=== PATIENT | female | born 1930 | race Caucasian/White ===

== ENCOUNTER 2017-01-04 11:22 | Observation (INO) | payer MEDICARE ==
[~2017-01-04] VITALS: Ht 170.2 cm; Wt 58.7 kg
[~2017-01-04 11:22] MED LIST: CALC600T34; FISH1000; RISE30; TAB-TAB
[2017-01-04 11:28] VITALS: BP 82/59; PULSE 63; RESP 16; TEMP 98; O2SAT 97
[2017-01-04] MEDS ORDERED: SODIUM CHLOR 0.9% 1000 ML INJ 1,000 ML IV ONE (11:41)
[2017-01-04 11:46] VITALS: BP_SYST 139; BP_SYST 162; BP_DIAS 57; BP_DIAS 79; RESP 16; RESP 17; O2SAT 97
--- NOTE | 2017-01-04 11:51 | PD ---
HPI Chief Complaint: Syncope/Near-Syncope Time Seen by Provider: 11:45 Travel History International Travel<30 days: No Contact w/Intl Traveler<30days: No Traveled to known affect area: No History of Present Illness HPI 86-year-old female that presents to the ED for evaluation of syncope. Patient reports that she has a chronic history of vertigo which she gets on occasion. Per patient she's never actually passed out or lost consciousness but this is the first time she has. Per patient this morning she woke up with some dizziness which she describes more as a presyncope Symptoms Than Actual Vertigo. Per Patient She Was Not Spinning but She [place] like She Was Lightheaded. Per Patient She Took a Meclizine to Help with this and she got up and before she knew it she was on the floor. She states that before she lost consciousness she felt lightheaded. She denies feeling sensation of her moving or someone else moving. She denies taking any medications including blood thinners. The only medication she usually takes is meclizine for her vertigo. Per patient or her pain is on the left hand around the thumb as well as on the face. Patient did have significant bleeding per family from the nostril which has now stopped. Per patient and her pain right now is 6 out of 10. States mainly on the nose and the left nostril. Denies any hip pain. No back pain. No neck pain. No chest pain or shortness of breath. She denies any symptoms of chest pain or palpitations when she had the syncopal episode. Nobody witnessed the fall but per daughter she was out for possibly a minute. No allergies to medication. Denies any recent travel. Again she has never had a syncopal episode before. PFSH Past Medical History Hx Anticoagulant Therapy: No Cardiovascular Problems: Yes (CHOL) Diabetes: No ?: Not Social History Alcohol Use: No Tobacco Use: No Substance Use: No Allergies-Medications (Allergen,Severity, Reaction): Coded Allergies: No Known Allergies (Verified , 01/04/17) Reported Meds & Prescriptions Reported Meds & Active Scripts Active No Active Prescriptions or Reported Medications Review of Systems General / Constitutional: No: Fever, Chills, Weight Gain, Weight Loss, Other Eyes: No: Diploplia, Blurred Vision, Photophobia, Drainage, Redness, Foreign Body Sensation, Pain, Tearing, Blind Spots, Visual changes, Blindness, Other HENT: Positive: Vertigo, Lightheadedness, No: Headaches, Sore Throat, Rhinitis , Rhinorrhea, Congestion, Nosebleed, Neck Stiffness, Neck Pain, Masses, Gingival Bleeding, Dental Difficulties, Ear Discharge, Earache, Other Cardiovascular: No: Chest Pain or Discomfort, Palpitations, Irregular Rhythm, Tachycardia, Diaphoresis, Syncope, Dyspnea on exertion, Varicosities, Edema, Cyanosis, Varicosities, Phlebitis, Claudication, Other Respiratory: No: Cough, Shortness of Breath, Wheezing, Sneezing, Orthopnea, Hemoptysis, Stridor, Night Sweats, Pleuritic Pain, Other Gastrointestinal: No: Nausea, Vomiting, Diarrhea, Abdominal Pain, Hematemesis, Hematochezia, Constipation, Changes in Bowel Habits, Indigestion, Dysphagia, Loss of Appetite, Other Genitourinary: No: Urgency, Frequency, Dysuria, Nocturia, Hematuria, Decreased Urinary Output, Oliguria, Hesitancy, Dribbling, Incontinence, Pelvic Pain, Flank Pain, Dyspareunia, Discharge, Dysmenorrhea, Menorrhagia, Metorrhagia, Vaginal Bleeding, Other Musculoskeletal: Positive: Pain, No: Myalgias, Arthralgias, Limited ROM, Weakness, Cramping, Edema, Atrophy, Other Skin: No Rash, No Itching, No Dryness, No Lumps, No Hives, No Change in Pigmentation, No Change in nails, No Alopecia, No Lesions, No Breast Lumps, No Breast Tenderness, No Breast Swelling, No Other Neurologic: Positive: Dizziness, Syncope, No: Weakness, Focal Abnormalities, Coordination Problem, Tremor, Ataxia, Headache, Change in Mentation, Slurred Speech, Paresthesia, Incontinence, Seizures, Sensory Disturbance, Other Psychiatric: No: Anxiety, Depression, Suicidal Ideations, Disorder of Thought, Mood Disorder, Substance Abuse, Homicidal Ideation, Other Endocrine: No: Heat Intolerance, Cold Intolerance, Polyuria, Polydipsia, Other Hematologic/Lymphatic: No: Easy Bruising, Lymph Node Enlargement, Other Physical Exam Narrative GENERAL: SKIN: Warm and dry. HEAD: Atraumatic. Normocephalic. EYES: Pupils equal and round 4 mm reactive to light and accommodation. No scleral icterus. No injection or drainage. ENT: No nasal bleeding or discharge. Mucous membranes pink and moist. Tongue is midline. No uvula deviation. Patient has significant bruising and swelling noted on the bridge of the nose. Both nostrils are patent. No active bleeding at this time noted. NECK: Trachea midline. No JVD. CARDIOVASCULAR: Regular rate and rhythm. No murmurs, S3, S4. RESPIRATORY: No accessory muscle use. Clear to auscultation. Breath sounds equal bilaterally. GASTROINTESTINAL: Abdomen soft, non-tender, nondistended. Hepatic and splenic margins not palpable. MUSCULOSKELETAL: Extremities without clubbing, cyanosis, or edema. No obvious deformities. Full range of motion of the upper and lower extremities bilaterally. 2+ pulses bilaterally. No lumbar, thoracic, cervical spine tenderness to palpation. NEUROLOGICAL: Awake and alert. No obvious cranial nerve deficits. Motor grossly within normal limits. Five out of 5 muscle strength in the arms and legs. Normal speech. PSYCHIATRIC: Appropriate mood and affect; insight and judgment normal. Data Data Last Documented VS Vital Signs Date Time Temp Pulse Resp B/P Pulse Ox O2 Delivery O2 Flow Rate FiO2 01/04/17 11:46 97 Room Air 01/04/17 11:46 68 17 162/79 73 16 139/57 01/04/17 11:28 98.0 Orders Electrocardiogram (01/04/17 ) Electrocardiogram (01/04/17 11:41) Basic Metabolic Panel (Bmp) (01/04/17 11:41) Complete Blood Count With Diff (01/04/17 11:41) Magnesium (Mg) (01/04/17 11:41) Ckmb (Isoenzyme) Profile (01/04/17 11:41) Troponin I (01/04/17 11:41) Urinalysis - C+S If Indicated (01/04/17 11:41) Chest, Single Ap (01/04/17 11:41) Ct Brain W/O Iv Contrast(Rout) (01/04/17 11:41) Ecg Monitoring (01/04/17 11:41) Iv Access Insert/Monitor (01/04/17 11:41) Oximetry (01/04/17 11:41) Sodium Chlor 0.9% 1000 Ml Inj (Ns 1000 M (01/04/17 11:41) Ct Facial Bones W/O Iv Cont (01/04/17 ) Orthostatic Vital Signs (01/04/17 11:41) Hand, Complete ([id number]) (01/04/17 ) Thyroid Stimulating Hormone (01/04/17 11:41) Echo 2d Comp W/Dopp(Routine) (01/04/17 ) Admit Order (Ed Use Only) (01/04/17 13:13) Labs Laboratory Tests Test 01/04/17 12:25 White Blood Count 11.2 TH/MM3 Red Blood Count 4.39 MIL/MM3 Hemoglobin 12.7 GM/DL Hematocrit 37.3 % Mean Corpuscular Volume 85.2 FL Mean Corpuscular Hemoglobin 28.9 PG Mean Corpuscular Hemoglobin 34.0 % Concent Red Cell Distribution Width 12.6 % Platelet Count 212 TH/MM3 Mean Platelet Volume 7.3 FL Neutrophils (%) (Auto) 74.6 % Lymphocytes (%) (Auto) 17.6 % Monocytes (%) (Auto) 7.0 % Eosinophils (%) (Auto) 0.5 % Basophils (%) (Auto) 0.3 % Neutrophils # (Auto) 8.3 TH/MM3 Lymphocytes # (Auto) 2.0 TH/MM3 Monocytes # (Auto) 0.8 TH/MM3 Eosinophils # (Auto) 0.1 TH/MM3 Basophils # (Auto) 0.0 TH/MM3 CBC Comment DIFF FINAL Differential Comment Sodium Level 138 MEQ/L Potassium Level 4.0 MEQ/L Chloride Level 101 MEQ/L Carbon Dioxide Level 30.4 MEQ/L Anion Gap 7 MEQ/L Blood Urea Nitrogen 14 MG/DL Creatinine 0.67 MG/DL Estimat Glomerular Filtration 84 ML/MIN Rate Random Glucose 86 MG/DL Calcium Level 8.7 MG/DL Magnesium Level 2.2 MG/DL Total Creatine Kinase 97 U/L Troponin I LESS THAN 0.02 NG/ML Thyroid Stimulating Hormone 1.360 uIU/ML 3rd Gen [facility] Medical Decision Making Medical Screen Exam Complete: Yes Emergency Medical Condition: Yes Medical Record Reviewed: Yes Interpretation(s) EKG shows sinus bradycardia but no sign of acute ischemia or arrhythmia with me and attending. Last Impressions Head CT 01/04/17 1141 Signed Impressions: Service Date/Time: Wednesday, January 04, 2017 11:51 - CONCLUSION: 3 mm punctate focus of spontaneously increased density in the right frontal lobe, could be a small calcification versus a small acute petechial hemorrhage. I don't have any pertinent priors. Followup noncontrast head CT recommended. Florin Hu MD Maxillofacial CT 01/04/17 0000 Signed Impressions: Service Date/Time: Wednesday, January 04, 2017 11:51 - CONCLUSION: Comminuted , minimally displaced fracture of the nose. Florin Hu MD CBC & BMP Diagram 01/04/17 12:25 troponin, CKMB and TSh WNL Differential Diagnosis Syncope versus presyncope versus fall versus head injury versus fracture Narrative Course 86-year-old female that presents to the ED for evaluation of syncopal episode. Patient was properly examined and was found to have signs and symptoms consistent with appears to be syncopal episode. Unclear etiology but does appear to be somewhat related to her blood pressure as her blood pressure today was found to be low with standing. Possible prostatic hypertension. Unclear etiology at this time. She does have a history of vertigo and tells me that she 's had vertigo in the past but never had syncopal episode. From the way she describes her symptoms that he did not sounds like vertigo to me sounds more like a syncopal episode. Because of her age and risk factors and the recommended workup. Patient is agreeable with this. Case will be consulted with my attending Dr. Melchor who evaluated the patient and agrees with plan and treatment plan. The patient's labs and imaging were essentially unremarkable other than for CT showing possible bleed versus calcification. I spoke with neurosurgery Dr. Larkin recommends that this is likely not a bleed more like calcification he doesn't recommend any intervention at this time. Patient still found to have orthostatic hypotension with a drop of 20 points. My attending agrees to admission for syncope and orthostatic hypotension. Patient does have nasal fractures but no sign of hand fractures. NENITA was paged and Dr Rivera agrees to admission. Procedures EKG Prior to Arrival: No Physician Communication Physician Communication Spoke with Dr Larkin about findings on CT of head and he believes is more of a calcification than an actual bleed. Does not recommend anything at this time. Diagnosis Primary Impression: Syncope Qualified Code: R55 - Syncope, unspecified syncope type Additional Impressions: Nasal bone fracture Qualified Code: S02.2XXA - Closed fracture of nasal bone, initial encounter Head injury, acute Qualified Code: S09.90XA - Head injury, acute, initial encounter Orthostatic hypotension Admitting Information Admitting Physician Requests: Observation Scripts No Active Prescriptions or Reported Meds Daniel Ambrocio Jan 04, 2017 11:51
--- NOTE | 2017-01-04 12:16 | RADHPO ---
EXAM DATE/TIME: 01/04/2017 11:51 [facility] COMPARISON: No previous studies available for comparison. INDICATIONS : Dizziness and fall today onto face. RADIATION DOSE: 65.56 CTDIvol (mGy) MEDICAL HISTORY : None SURGICAL HISTORY : None. ENCOUNTER: Initial ACUITY: 1 day PAIN SCALE: 5/10 LOCATION: Bilateral head TECHNIQUE: Multiple contiguous axial images were obtained of the head. Using automated exposure control and adj ustment of the mA and/or kV according to patient size, radiation dose was kept as low as reasonably a chievable to obtain optimal diagnostic quality images. FINDINGS: 3 mm punctate focus of increased attenuation seen in the right frontal lobe, series 2 image 11. This could be a small petechial hemorrhage. No other evidence of intracranial bleed. No mass, mass effect or midline shift. No evidence of an acute ischemic event. CONCLUSION: 3 mm punctate focus of spontaneously increased density in the right frontal lobe, could be a small ca lcification versus a small acute petechial hemorrhage. I don't have any pertinent priors. Followup no ncontrast head CT recommended. Florin Hu MD on January 04, 2017 at 12:12 Board Certified Radiologist. This report was verified electronically.
--- NOTE | 2017-01-04 12:20 | RADHPO ---
EXAM DATE/TIME: 01/04/2017 11:51 [facility] COMPARISON: No previous studies available for comparison. INDICATIONS : Dizziness and fall today onto face. RADIATION DOSE: 34.90 CTDIvol (mGy) MEDICAL HISTORY : None SURGICAL HISTORY : None. ENCOUNTER: Initial ACUITY: 1 day PAIN SCORE: 8/10 LOCATION: face/nose TECHNIQUE: Volumetric scanning of the facial bones was performed. Using automated exposure control and adjustme nt of the mA and/or kV according to patient size, radiation dose was kept as low as reasonably achiev able to obtain optimal diagnostic quality images. FINDINGS: ORBITS: The orbital and infraorbital osseous structures are intact. The retroconal structures have a normal configuration. No radiopaque foreign bodies are seen. NASAL BONE: Comminuted, minimally displaced fracture seen of the tip of the nasion and both sides of the nasal ar ch. ZYGOMATIC ARCHES: Symmetric without evidence of fracture. SINUSES: The maxillary, ethmoid and frontal sinuses are intact. No air-fluid levels seen. NASAL CAVITY: No significant blood seen. There is a leftward convex bowing of the nasal septum. The septum is intac t. SOFT TISSUES: No radiopaque foreign bodies seen. No soft-tissue swelling is seen. INTRACRANIAL: No intracranial air seen. CRIBIFORM PLATE: Grossly intact. 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 No subluxation. CONCLUSION: Comminuted, minimally displaced fracture of the nose. Florin Hu MD on January 04, 2017 at 12:17 Board Certified Radiologist. This report was verified electronically.
[2017-01-04 12:35] LABS: AUTOMATED NEUTROPHIL # 8.3 TH/MM3 (1.8-7.7); BASOPHIL % 0.3 % (0.0-2.0); EOSINOPHIL # 0.1 TH/MM3 (0-0.4); EOSINOPHIL % 0.5 % (0.0-4.0); HEMATOCRIT 37.3 % (35.0-46.0); HEMO FLAGS DIFF FINAL; LYMPH % 17.6 % (9.0-44.0); MEAN CELL VOLUME 85.2 FL (80.0-100.0); MEAN CORPUSCULAR HEMOGLOBIN 28.9 PG (27.0-34.0); NEUT % 74.6 % (16.0-70.0); PLATELET COUNT 212 TH/MM3 (150-450); RED BLOOD COUNT 4.39 MIL/MM3 (4.00-5.30); RED CELL DISTRIBUTION WIDTH 12.6 % (11.6-17.2); WHITE BLOOD COUNT 11.2 TH/MM3 (4.0-11.0)
--- NOTE | 2017-01-04 12:39 | RADHPO ---
EXAM DATE/TIME: 01/04/2017 12:01 [facility] COMPARISON: No previous studies available for comparison. INDICATIONS : Fell, syncope MEDICAL HISTORY : None. SURGICAL HISTORY : None. ENCOUNTER: Initial ACUITY: 1 day PAIN SCORE: 0/10 LOCATION: Bilateral chest FINDINGS: No infiltrate, effusion or pneumothorax. There is mild biapical pleural thickening/scarring. Normal h eart size. 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 CONCLUSION: No evidence of acute cardiopulmonary disease. Florin Hu MD on January 04, 2017 at 12:37 Board Certified Radiologist. This report was verified electronically.
--- NOTE | 2017-01-04 12:40 | RADHPO ---
EXAM DATE/TIME: 01/04/2017 12:04 [facility] COMPARISON: No previous studies available for comparison. INDICATIONS : fell, left hand pain MEDICAL HISTORY : None. SURGICAL HISTORY : None. ENCOUNTER: Initial ACUITY: 1 day PAIN SCORE: 10/10 LOCATION: Left hand FINDINGS: No fracture or subluxation seen of the left hand. Radiographic appearance of the soft tissues within normal limits. There is multifocal osteoarthritis, most severe of the first carpometacarpal joint and pointer and lo ng finger distal interphalangeal joints. Findings are mild to moderate elsewhere. CONCLUSION: Multifocal osteoarthritis. No fracture or subluxation seen of the left hand. Florin Hu MD on January 04, 2017 at 12:38 Board Certified Radiologist. This report was verified electronically.
[2017-01-04 12:43] LABS: CHLORIDE 101 MEQ/L (98-107); SODIUM (NA) 138 MEQ/L (136-145)
[2017-01-04 12:48] LABS: ANION GAP 7 MEQ/L (5-15); BICARBONATE 30.4 MEQ/L (21.0-32.0); BLOOD UREA NITROGEN 14 MG/DL (7-18); MAGNESIUM 2.2 MG/DL (1.5-2.5)
[2017-01-04 12:52] LABS: GLOMERULAR FILTRATION RATE 84 ML/MIN (>89)
[2017-01-04 13:04] LABS: CREATINE KINASE 97 U/L (26-192)
--- NOTE | 2017-01-04 13:13 | PD ---
Data Data Last Documented VS Vital Signs Date Time Temp Pulse Resp B/P Pulse Ox O2 Delivery O2 Flow Rate FiO2 01/04/17 11:46 97 Room Air 01/04/17 11:46 68 17 162/79 73 16 139/57 01/04/17 11:28 98.0 Orders Electrocardiogram (01/04/17 ) Electrocardiogram (01/04/17 11:41) Basic Metabolic Panel (Bmp) (01/04/17 11:41) Complete Blood Count With Diff (01/04/17 11:41) Magnesium (Mg) (01/04/17 11:41) Ckmb (Isoenzyme) Profile (01/04/17 11:41) Troponin I (01/04/17 11:41) Urinalysis - C+S If Indicated (01/04/17 11:41) Chest, Single Ap (01/04/17 11:41) Ct Brain W/O Iv Contrast(Rout) (01/04/17 11:41) Ecg Monitoring (01/04/17 11:41) Iv Access Insert/Monitor (01/04/17 11:41) Oximetry (01/04/17 11:41) Sodium Chlor 0.9% 1000 Ml Inj (Ns 1000 M (01/04/17 11:41) Ct Facial Bones W/O Iv Cont (01/04/17 ) Orthostatic Vital Signs (01/04/17 11:41) Hand, Complete ([id number]) (01/04/17 ) Thyroid Stimulating Hormone (01/04/17 11:41) Labs Laboratory Tests Test 01/04/17 12:25 White Blood Count 11.2 TH/MM3 Red Blood Count 4.39 MIL/MM3 Hemoglobin 12.7 GM/DL Hematocrit 37.3 % Mean Corpuscular Volume 85.2 FL Mean Corpuscular Hemoglobin 28.9 PG Mean Corpuscular Hemoglobin 34.0 % Concent Red Cell Distribution Width 12.6 % Platelet Count 212 TH/MM3 Mean Platelet Volume 7.3 FL Neutrophils (%) (Auto) 74.6 % Lymphocytes (%) (Auto) 17.6 % Monocytes (%) (Auto) 7.0 % Eosinophils (%) (Auto) 0.5 % Basophils (%) (Auto) 0.3 % Neutrophils # (Auto) 8.3 TH/MM3 Lymphocytes # (Auto) 2.0 TH/MM3 Monocytes # (Auto) 0.8 TH/MM3 Eosinophils # (Auto) 0.1 TH/MM3 Basophils # (Auto) 0.0 TH/MM3 CBC Comment DIFF FINAL Differential Comment Sodium Level 138 MEQ/L Potassium Level 4.0 MEQ/L Chloride Level 101 MEQ/L Carbon Dioxide Level 30.4 MEQ/L Anion Gap 7 MEQ/L Blood Urea Nitrogen 14 MG/DL Creatinine 0.67 MG/DL Estimat Glomerular Filtration 84 ML/MIN Rate Random Glucose 86 MG/DL Calcium Level 8.7 MG/DL Magnesium Level 2.2 MG/DL Total Creatine Kinase 97 U/L Troponin I LESS THAN 0.02 NG/ML Thyroid Stimulating Hormone 1.360 uIU/ML 3rd Gen MDM Supervised Visit with SHAN: Yes Narrative Course I, Dr. Archibald, have reviewed the advance practice practioner's documentation and am in agreement, met with the patient face to face, made the diagnosis, and the medical decision making was done by me. *My assessment and Findings: 86-year-old female here after syncope. Patient noted lightheadedness, no dizziness. Stood up and extension she knew she was unconscious on the floor. Hit her head. Notes bruising around the nose. Epistaxis that has since resolved. No nasal hematoma on exam. History of peripheral vertigo, takes meclizine for same, but this did not feel like her typical vertigo spell. No chest pain, shortness breath or palpitations. Initially hypotensive, normalized upon recheck. Nonfocal neuro exam. Head is atraumatic but she has ecchymosis around the nasal bridge. Again no septal hematoma. Regular rate and rhythm, clear to auscultation bilaterally. Differential includes orthostatic syncope, vasovagal syncope, arrhythmia, ACS, closed head injury, skull fracture, ICH, nasal bone fracture. CT of the brain shows questionable punctate hemorrhage versus calcification. Neurosurgery, Dr. Larkin, reviewed this and felt this to be consistent with calcification and was okay with patient being admitted here at our [facility]. The remainder of her workup was negative. Urinalysis remains pending at time of dictation. Patient will be admitted for further workup of her syncope. Diagnosis Primary Impression: Syncope Qualified Code: R55 - Syncope, unspecified syncope type Additional Impressions: Nasal bone fracture Qualified Code: S02.2XXA - Closed fracture of nasal bone, initial encounter Head injury, acute Qualified Code: S09.90XA - Head injury, acute, initial encounter Orthostatic hypotension Scripts No Active Prescriptions or Reported Meds Dary Archibald MD Jan 04, 2017 13:13
[2017-01-04 13:26] LABS: BLOOD, URINE NEG (NEG); GLUCOSE,URINE NEG (NEG); KETONE, URINE NEG (NEG); NITRITE,URINE NEG (NEG); PH, URINE 6.5 (5.0-8.5)
[2017-01-04 13:27] LABS: METHOD OF COLLECTION CLEAN CATCH; URINE COLOR YELLOW (YELLW/STRAW)
[2017-01-04 13:30] LABS: COMMENT (UR) CULT NOT INDICATED; CULTURE IF INDICATED CULT NOT INDICATED; WBC, URINE 0-2 /hpf (0-5)
[2017-01-04] MEDS ORDERED: NALOXONE HCL 0.4 MG/ML AMP IV PRN (13:30)
[2017-01-04] MEDS ORDERED: SODIUM CHLORIDE 0.9% FLUSH 5 ML FLUSH FLUSH PRN (13:30)
[2017-01-04] MEDS ORDERED: ONDANSETRON HCL 4 MG/2 ML VIAL IVP PRN (13:30)
[2017-01-04] MEDS ORDERED: ACETAMINOPHEN 325 MG TAB PO PRN (13:30)
[2017-01-04 13:50] VITALS: BP 140/64
[2017-01-04] MEDS: SODIUM CHLOR 0.9% 1000 ML INJ 1,000 ML IV SCH (13:54)
[2017-01-04 15:19] VITALS: BP_SYST 138; BP_SYST 140; BP_DIAS 68; BP_DIAS 71; PULSE 71; RESP 19; TEMP 97.6; O2SAT 96
--- NOTE | 2017-01-04 15:28 | HHI.HP ---
[facility] Service [facility] Primary Care Physician Trudy Henry MD Admission Diagnosis sycnope, orthostatic hypotension, nasal fracture Diagnoses: (1) Syncope Diagnosis: Principal (2) Orthostatic hypotension Diagnosis: Principal (3) Head injury, acute Diagnosis: Principal (4) Nasal bone fracture Diagnosis: Principal Chief Complaint: Syncope Travel History International Travel<30 Days: No Contact w/Intl Traveler <30 Da: No Traveled to Known Affected Are: No History of Present Illness 86-year-old female with known history of vertigo who presented to hospital after syncopal episode. Patient states that she is in normal state of health until this morning when she got out of bed she realized that she was having dizziness. She states that she does have this intermittently in the last episode was 6 months ago. The patient got up and went to the kitchen and took a meclizine, she turned around to go back and that time she had a syncopal episode and woke up on the ground. The daughter was at bedside and it was explained that the patient does have episodes of this dizziness to where she is usually able to lower herself down to the ground, take her medication, crawl or stand back up in go to a safe place. However this time she did have a syncopal episode. The daughter brought her blood pressure cuff over and checked her blood pressure at that time and she stated that it was high. She did not give any exact numbers. Patient was brought to the hospital and found to have orthostatic hypotension, fractured nasal bone, close head injury with possible calcium deposition or petechial hemorrhage. Is recommended by ER physician that the patient be observed overnight for further recommendations. The patient denies any visual changes, difficulty in speaking, difficulty in eating , gait disturbance, paresthesia, unilateral weakness. Review of Systems Constitutional: COMPLAINS OF: Dizziness, DENIES: Diaphoretic episodes, Fatigue , Fever, Weight gain, Weight loss, Chills, Change in appetite, Night Sweats Eyes: DENIES: Blurred vision, Diplopia, Eye inflammation, Eye pain, Vision loss , Double Vision Ears, nose, mouth, throat: DENIES: Vertigo, Nasal discharge, Throat pain, Ear Pain, Running Nose, Sinus Pain Respiratory: DENIES: Apneas, Cough, Snoring, Wheezing, Hemoptysis, Sputum production, Shortness of breath Cardiovascular: COMPLAINS OF: Syncope, DENIES: Chest pain, Palpitations, Dyspnea on Exertion, PND, Lower Extremity Edema, Orthopnea, Claudication Gastrointestinal: DENIES: Abdominal pain, Black stools, Bloody stools, Constipation, Diarrhea, Nausea, Vomiting, Difficulty Swallowing, Anorexia Neurologic: DENIES: Abnormal gait, Headache, Localized weakness, Paresthesias, Speech Problems, Tremor, Poor Balance Past Family Social History Past Medical History Vertigo Past Surgical History Cataract surgery Hysterectomy Reported Medications Meclizine 25 mg as needed for dizziness Allergies: Coded Allergies: No Known Allergies (Verified , 01/04/17) Family History Reviewed is significant for father having black lung. Mother having congestive heart failure Social History Patient denies any tobacco, alcohol or illicit drugs Physical Exam Vital Signs Vital Signs Date Time Temp Pulse Resp B/P Pulse Ox O2 Delivery O2 Flow Rate FiO2 01/04/17 13:50 58 16 140/64 99 01/04/17 11:46 97 Room Air 01/04/17 11:46 68 17 162/79 73 16 139/57 01/04/17 11:43 68 Room Air 01/04/17 11:28 98.0 63 16 82/59 97 Physical Exam GENERAL: Well-developed, well-nourished, in no acute distress. alert and orientated HEENT: Head is normocephalic without any lesions or masses noted. Facial features are symmetric. Eyes: Pupils equal round reactive to light. Extraocular muscles are intact. Conjunctivae were clear. Oropharyngeal: Pharynx without any erythema edema. Tongue is midline without deviation. Buccal mucosa is moist without any masses or lesions NECK: Supple without any masses. Trachea midline no deviation. No JVD, no bruits are appreciated. Patient does have nasal bridge edema. There is ecchymosis noted over nasal bridge and bilateral infraorbital CARDIAC: Regular rhythm, regular rate. S1/S2 are heard. No murmurs gallops or rubs. LUNGS: Clear to auscultation bilaterally. No wheeze, rhonchi or rales. No use of accessory muscles on inspiration or expiration. ABDOMEN: Soft, nontender. Nondistended. Bowel sounds heard in all 4 quadrants. No organomegaly or masses. Negative rebound, negative guarding EXTREMITIES: No edema, pulses are equal bilaterally. No cyanosis or clubbing NEUROLOGY: Mood and affect appear appropriate. Cranial nerves II through XII grossly intact. Muscle strength 5/5 in upper and lower extremities bilaterally. Deep tendon reflexes are 2+ in upper and lower extremities bilaterally. Laboratory Laboratory Tests Test 01/04/17 01/04/17 12:25 13:10 White Blood Count 11.2 Red Blood Count 4.39 Hemoglobin 12.7 Hematocrit 37.3 Mean Corpuscular Volume 85.2 Mean Corpuscular Hemoglobin 28.9 Mean Corpuscular Hemoglobin 34.0 Concent Red Cell Distribution Width 12.6 Platelet Count 212 Mean Platelet Volume 7.3 Neutrophils (%) (Auto) 74.6 Lymphocytes (%) (Auto) 17.6 Monocytes (%) (Auto) 7.0 Eosinophils (%) (Auto) 0.5 Basophils (%) (Auto) 0.3 Neutrophils # (Auto) 8.3 Lymphocytes # (Auto) 2.0 Monocytes # (Auto) 0.8 Eosinophils # (Auto) 0.1 Basophils # (Auto) 0.0 CBC Comment DIFF FINAL Differential Comment Sodium Level 138 Potassium Level 4.0 Chloride Level 101 Carbon Dioxide Level 30.4 Anion Gap 7 Blood Urea Nitrogen 14 Creatinine 0.67 Estimat Glomerular Filtration 84 Rate Random Glucose 86 Calcium Level 8.7 Magnesium Level 2.2 Total Creatine Kinase 97 Troponin I LESS THAN 0.02 Thyroid Stimulating Hormone 1.360 3rd Gen Urine Collection Type CLEAN CATCH Urine Color YELLOW Urine Turbidity CLEAR Urine pH 6.5 Urine Specific [place] 1.012 Urine Protein NEG Urine Glucose (UA) NEG Urine Ketones NEG Urine Occult Blood NEG Urine Nitrite NEG Urine Bilirubin NEG Urine Leukocyte Esterase NEG Urine WBC 0-2 Microscopic Urinalysis Comment CULT NOT INDICATED Result Diagram: 01/04/17 1225 01/04/17 1225 Imaging Last Impressions Head CT 01/04/17 1141 Signed Impressions: Service Date/Time: Wednesday, January 04, 2017 11:51 - CONCLUSION: 3 mm punctate focus of spontaneously increased density in the right frontal lobe, could be a small calcification versus a small acute petechial hemorrhage. I don't have any pertinent priors. Followup noncontrast head CT recommended. Florin Hu MD Chest X-Ray 01/04/17 1141 Signed Impressions: Service Date/Time: Wednesday, January 04, 2017 12:01 - CONCLUSION: No evidence of acute cardiopulmonary disease. Florin Hu MD Maxillofacial CT 01/04/17 0000 Signed Impressions: Service Date/Time: Wednesday, January 04, 2017 11:51 - CONCLUSION: Comminuted , minimally displaced fracture of the nose. Florin Hu MD Hand X-Ray 01/04/17 0000 Signed Impressions: Service Date/Time: Wednesday, January 04, 2017 12:04 - CONCLUSION: Multifocal osteoarthritis. No fracture or subluxation seen of the left hand. Florin Hu MD Assessment and Plan Assessment and Plan Syncopal episode with closed head injury, nasal fracture: Upon arrival patient did low blood pressure and follow-up orthostatic vitals were positive. Likely syncopal episode from orthostatic hypotension. CT scan done of the brain which did indicate small area of calcification or petechial hemorrhage. Neurosurgery Dr. Larkin was called by ER physician who reviewed the studies and indicated that he felt that it was most consistent with calcification. Patient be started on IV fluids, follow-up orthostatic vitals. Will obtain echocardiogram , physical therapy evaluation. Patient will have frequent neuro checks. Nursing staff instructed to contact physician if acute neurological change. Patient be continued on telemetry to evaluate for any arrhythmia. Initial cardiac enzymes are negative and EKG shows sinus bradycardia PACs. No signs of acute coronary event at this time. Care plan was discussed with patient and family at bedside. History of vertigo: Continue Antivert as needed DVT prevention: Sequential compression devices Written by Sandor Herring PA-C, acting as scribe for Dr. Rivera on 01/04/17 at 1515. The documentation accurately reflects the work and decisions performed face-to- face by Dr. Rivera on 01/04/17 at 1515. Problem Qualifiers (1) Syncope: Qualified Code: R55 - Syncope, unspecified syncope type (2) Head injury, acute: Qualified Code: S09.90XA - Head injury, acute, initial encounter (3) Nasal bone fracture: Qualified Code: S02.2XXA - Closed fracture of nasal bone, initial encounter Sandor Herring Jan 04, 2017 15:27
[2017-01-04] MEDS ORDERED: MECLIZINE HCL 25 MG TAB PO PRN (15:30)
[2017-01-04 20:15] VITALS: BP 136/89; PULSE 57; RESP 16; TEMP 97.7; O2SAT 96
[2017-01-04] MEDS: DOCUSATE SODIUM 100 MG CAP PO SCH (20:36)
[2017-01-04] MEDS: SODIUM CHLORIDE 0.9% FLUSH 5 ML FLUSH FLUSH SCH (20:38)
[2017-01-05 00:15] VITALS: BP 171/80; PULSE 60; RESP 16; TEMP 98; O2SAT 97
[2017-01-05 00:30] VITALS: BP 142/68
[2017-01-05 07:08] LABS: POTASSIUM 3.8 MEQ/L (3.5-5.1)
[2017-01-05 07:12] LABS: BICARBONATE 27.8 MEQ/L (21.0-32.0)
[2017-01-05 08:00] VITALS: BP_SYST 136; BP_SYST 149; BP_DIAS 68; BP_DIAS 70; PULSE 54; RESP 18; TEMP 98.5; O2SAT 95
[2017-01-05] MEDS: SODIUM CHLORIDE 0.9% FLUSH 5 ML FLUSH FLUSH SCH (08:44)
[2017-01-05] MEDS: SODIUM CHLOR 0.9% 1000 ML INJ 1,000 ML IV SCH ×2 (08:44)
[2017-01-05] MEDS: DOCUSATE SODIUM 100 MG CAP PO SCH (08:44)
--- NOTE | 2017-01-05 09:25 | HHI.DCPOC ---
Discharge Care Plan Diagnosis: (1) Syncope (2) Nasal bone fracture Goals to Promote Your Health * To prevent worsening of your condition and complications * To maintain your health at the optimal level Directions to Meet Your Goals Take your medications as prescribed Follow your dietary instruction Follow activity as directed Keep your appointments as scheduled Take your immunizations and boosters as scheduled If your symptoms worsen call your PCP, if no PCP go to Urgent Care Center or Emergency Room Smoking is Dangerous to Your Health. Avoid second hand smoke Call the 24-hour hour crisis hotline for domestic abuse at Sandor Herring Jan 05, 2017 09:25
--- NOTE | 2017-01-05 09:25 | HHI.PR ---
Subjective Remarks Patient seen and examined today with Dr. Rivera. Patient states that she is doing much better. Daughter at bedside. Physical therapy recommending home with no recommendations. Orthostatic vitals have improved with IV hydration Objective Vitals Vital Signs Date Time Temp Pulse Resp B/P Pulse Ox O2 Delivery O2 Flow Rate FiO2 01/05/17 08:00 98.5 54 18 149/68 95 136/70 01/05/17 00:30 142/68 01/05/17 00:15 98.0 60 16 171/80 97 01/04/17 20:15 97.7 57 16 136/89 96 01/04/17 15:19 97.6 71 19 138/68 96 140/71 01/04/17 13:50 58 16 140/64 99 01/04/17 11:46 97 Room Air 01/04/17 11:46 68 17 162/79 73 16 139/57 01/04/17 11:43 68 Room Air 01/04/17 11:28 98.0 63 16 82/59 97 I/O 01/04/17 01/04/17 01/04/17 01/05/17 01/05/17 01/05/17 07:00 15:00 23:00 07:00 15:00 23:00 Intake Total 1200 ml Output Total 300 ml Balance -300 ml 1200 ml Intake IV Total 1200 ml Output Urine Total 300 ml # Voids 1 4 Result Diagram: 01/04/17 1225 01/05/17 0630 Objective Remarks GENERAL: Well-developed, well-nourished, in no acute distress. alert and orientated HEENT: Head is normocephalic without any lesions or masses noted. Facial features are symmetric. Eyes: Extraocular muscles are intact. Conjunctivae were clear. Patient does have nasal bridge edema. There is ecchymosis noted over nasal bridge and bilateral infraorbital NECK: Supple without any masses. Trachea midline no deviation. No JVD, CARDIAC: Regular rhythm, regular rate. S1/S2 are heard. No murmurs gallops or rubs. LUNGS: Clear to auscultation bilaterally. No wheeze, rhonchi or rales. No use of accessory muscles on inspiration or expiration. ABDOMEN: Soft, nontender. Nondistended. Bowel sounds heard in all 4 quadrants. No organomegaly or masses. Negative rebound, negative guarding EXTREMITIES: No edema, pulses are equal bilaterally. No cyanosis or clubbing NEUROLOGY: Mood and affect appear appropriate. Cranial nerves II through XII grossly intact. Moving all extremities. Speech is clear Urinary Catheter: No Vascular Central Line Catheter: No A/P Assessment and Plan Syncopal episode with closed head injury, nasal fracture: Upon arrival patient did low blood pressure and orthostatic vitals were positive. Likely syncopal episode from orthostatic hypotension. CT scan done of the brain which did indicate small area of calcification or petechial hemorrhage. Neurosurgery Dr. Larkin was called by ER physician who reviewed the studies and indicated that he felt that it was most consistent with calcification. Patient was continued on IV fluids. Follow-up orthostatic final*within normal range., Awaiting echocardiogram for discharge, physical therapy evaluation performed and indicated no physical therapy recommendations upon discharge. Patient with frequent neuro checks without any acute changes. Nursing staff instructed to contact physician if acute neurological change. Telemetry was reviewed without any acute abnormality. Discontinue telemetry at this time.. Cardiac enzymes are negative and EKG shows sinus bradycardia PACs. No signs of acute coronary event at this time. Echocardiogram indicates EF 60-65%, Normal systolic function, Mild mitral and tricuspid regurg. Care plan was discussed with patient and family at bedside. I reemphasized with the patient and her daughter to take care with position changes, ensure to sit down when symptoms occur, hydration. Also discussed use of midodrine and provided a prescription; they will followup with their PCP this week Dr. Pak. History of vertigo: Continue Antivert as needed DVT prevention: Sequential compression devices Written by Sandor Herring PA-C, acting as scribe for Dr. Rivera on 01/05/17 at 1348. The documentation accurately reflects the work and decisions performed face-to- face by Dr. Rivera on 01/05/17 at 1348. Discharge Planning Discharge home in stable condition Activity: Ad micha. Diet: Healthy heart diet Medications per medication reconciliation Follow-up primary medical doctor one week Sandor Herring Jan 05, 2017 09:24 Vivien Rivera MD Jan 05, 2017 14:02
[2017-01-05 12:00] VITALS: BP 129/65; PULSE 54; RESP 17; TEMP 98.1; O2SAT 96
--- NOTE | 2017-01-05 13:08 | EC ---
Study Study Date:01/05/2017 STUDY CONCLUSIONS SUMMARY - Left ventricle: The cavity size was normal. Wall thickness was normal. Systolic function was normal. The estimated ejection fraction was in the range of 60% to 65%. Wall motion was normal; there were no regional wall motion abnormalities. - Mitral valve: Mild regurgitation. - Tricuspid valve: Mild regurgitation. - Pulmonary arteries: PA peak pressure: 51mm Hg (S). If LV function is below 40, please consider prescribing an ACEI or ARB or document rationale for non-use. PROCEDURE DATA STUDY STATUS: Elective. Procedure: Transthoracic echocardiography. Image quality was good. Scanning was performed from the parasternal, apical, and subcostal acoustic windows. Study completion: The patient tolerated the procedure well. Transthoracic echocardiography. M-mode, complete 2D, complete spectral Doppler, and color Doppler. Patient status: Inpatient. CARDIAC ANATOMY LEFT VENTRICLE: The cavity size was normal. Wall thickness was normal. Systolic function was normal. The estimated ejection fraction was in the range of 60% to 65%. Wall motion was normal; there were no regional wall motion abnormalities. AORTIC VALVE: Trileaflet; normal thickness leaflets. Doppler: Transvalvular velocity was within the normal range. There was no stenosis. Trace to mild regurgitation. AORTA: Aortic root: The aortic root was normal in size. MITRAL VALVE: Structurally normal valve. Doppler: Transvalvular velocity was within the normal range. There was no evidence for stenosis. Mild regurgitation. LEFT ATRIUM: The atrium was normal in size. RIGHT VENTRICLE: The cavity size was normal. Wall thickness was normal. Systolic pressure was within the normal range. PULMONIC VALVE: Doppler: Transvalvular velocity was within the normal range. There was no evidence for stenosis. No regurgitation. TRICUSPID VALVE: Structurally normal valve. Doppler: Transvalvular velocity was within the normal range. Mild regurgitation. PULMONARY ARTERY: The main pulmonary artery was normal-sized. Systolic pressure was within the normal range. RIGHT ATRIUM: The atrium was normal in size. PERICARDIUM: There was no pericardial effusion. SYSTEMIC VEINS: Inferior vena cava: The vessel was normal in size. BASIC MEASUREMENTS ADULT Normal Left ventricle LV internal dimension, ED, chordal level, *33.5 mm 43-52 PLAX LV internal dimension, ES, chordal level, 24.4 mm 23-38 PLAX Fractional shortening, chordal level, PLAX *27 % >29 LV posterior wall thickness, ED 9.5 mm IVS/LVPW ratio, ED 1 <1.3 Ventricular septum Septal thickness, ED 9.5 mm Aortic valve Leaflet separation 21 mm 15-26 Right ventricle RV internal dimension, ED, PLAX 24.7 mm 19-38 BASIC MEASUREMENTS ADULT Normal Aortic valve Leaflet separation 21 mm 15-26 Aorta Root diameter, ED 32 mm 20-37 Left atrium Anterior-posterior dimension, ES 28 mm 19-40 LA/aortic root ratio 0.88 DOPPLER MEASUREMENTS ADULT Normal Main pulmonary artery Pressure, S *51 mm Hg =30 Aortic valve Regurgitant velocity, ED 389 cm/s Regurgitant deceleration 1820 cm/s^2 Regurgitant pressure half-time 626 ms Regurgitant gradient, ED 61 mm Hg Tricuspid valve Regurgitant peak velocity 321 cm/s Peak RV-RA gradient, S 41 mm Hg Maximal regurgitant velocity 321 cm/s Systemic veins Estimated CVP 10 mm Hg Right ventricle RV pressure, S *51 mm Hg <30 LEGEND: Mean values are shown as u=mean value. Asterisk (*) balnd values outside specified normal range. Prepared and signed by Gaurav Le [id number]
[2017-01-05] MEDS ORDERED: MIDO2.5T PO (13:46)
[2017-01-05] MEDS ORDERED: MIDODRINE 5 MG TAB PO SCH (14:00)
--- NOTE | 2017-01-05 14:50 | EKG ---
Date Performed: 01/04/2017 Time Performed: 11:45:28 PTAGE: 86 years EKG: Sinus bradycardia with PAC(s) Possible septal infarct - age undetermined Lateral ST changes are nonspecific Since previous tracing, no significant change noted Abnormal ECG PREVIOUS TRACING : 06/15/2007 11.50 DOCTOR: Luis Zheng Interpretating Date/Time 01/05/2017 15:40:38
== END 2017-01-05 14:12 | disposition home or self-care (01) ==
LOC: PHED 11:22 → PHEDA 13:15 → PH3B 14:00
PROVIDERS: ADMIT Family Medicine; ATTEND Family Medicine
DX: R55 Syncope and collapse (principal); S02.2XXA Fracture of nasal bones, initial encounter for closed fracture; S09.90XA Unspecified injury of head, initial encounter; R00.1 Bradycardia, unspecified; I08.1 Rheumatic disorders of both mitral and tricuspid valves; M19.90 Unspecified osteoarthritis, unspecified site
CPT/HCPCS: 70450; 70486; 71010; 73130; 80048; 81001; 82550; 83735; 84443; 84484; 85025; 93005; 93306; 96360; 97161; 99285; G0378; G8987; G8988; J7030

== ENCOUNTER 2017-04-04 12:21 | Emergency (ER) | payer MEDICARE ==
[~2017-04-04] VITALS: Ht 170.2 cm; Wt 58.8 kg
[~2017-04-04 12:21] MED LIST changes: -CALC600T34; -FISH1000; +MIDO2.5T PO; -RISE30; -TAB-TAB
[2017-04-04 12:27] VITALS: BP 158/73; PULSE 60; RESP 16; TEMP 98.3; O2SAT 95
[2017-04-04] MEDS ORDERED: ACETAMINOPHEN 500 MG CPLT PO ONE (13:30)
--- NOTE | 2017-04-04 13:32 | PD ---
HPI Chief Complaint: Pain: Acute or Chronic Time Seen by Provider: 12:38 Travel History International Travel<30 days: No Contact w/Intl Traveler<30days: No Traveled to known affect area: No History of Present Illness HPI Healthy 87-year-old female here with right leg pain. Patient woke up this morning with a crampy type pain in her right leg from the knee to the ankle. She denies any injuries, falls, twists, etc. She has not noticed any redness, swelling. She has not taken anything for the pain, but states that it is worse with movement and ambulation. She has a walker that she uses at home intermittently, and did use this this morning was able ambulate without difficulty. No recent travel, history of DVT, PE. PFSH Past Medical History Medical History: Denies Significant Hx Hx Anticoagulant Therapy: No Cardiovascular Problems: Yes (CHOL) High Cholesterol: Yes Diabetes: No Diminished Hearing: No Neurologic: No Influenza Vaccination: Yes ?: Not Past Surgical History Hysterectomy: Yes Social History Alcohol Use: No Tobacco Use: No Substance Use: No Allergies-Medications (Allergen,Severity, Reaction): Coded Allergies: No Known Allergies (Verified , 04/04/17) Reported Meds & Prescriptions Reported Meds & Active Scripts Active Review of Systems Except as stated in HPI: all other systems reviewed are Neg Physical Exam Narrative GENERAL: Well-appearing elderly female in no acute distress SKIN: Focused skin assessment warm/dry. HEAD: Normocephalic. EYES: No scleral icterus. No injection or drainage. ENT: Mucous membranes pink and moist. NECK: Supple without midline tenderness palpation CARDIOVASCULAR: Regular rate and rhythm. RESPIRATORY: No accessory muscle use. MUSCULOSKELETAL: No obvious deformities. No midline tenderness to palpation of thoracic or lumbar spine. No sacroiliac pain. Range of motion and strength of the right lower extremity is intact. Patient has some pain with palpation of the gastroc muscle, no palpable cords. No erythema. Good distal sensation, pulses. The right calf may be minimally larger than the left, but not markedly so. NEUROLOGICAL: Awake and alert. Able to ambulate independently. Normal speech. PSYCHIATRIC: Appropriate mood and affect; insight and judgment normal. Data Data Last Documented VS Vital Signs Date Time Temp Pulse Resp B/P Pulse Ox O2 Delivery O2 Flow Rate FiO2 04/04/17 12:27 98.3 60 16 158/73 95 Orders Us Leg Venous Doppler (5/19/17 ) Acetaminophen (Tylenol) (04/04/17 13:30) MDM Medical Decision Making Medical Screen Exam Complete: Yes Emergency Medical Condition: Yes Medical Record Reviewed: Yes Differential Diagnosis 87-year-old female here with atraumatic right calf pain, crampy since waking this morning. Differential includes DVT, muscle strain, Dumas cyst. Less likely radicular symptoms. Narrative Course Patient given Tylenol. Duplex ultrasound the right lower extremity was negative for DVT. Patient was able ambulate independently and will be discharged home. Diagnosis Primary Impression: Right calf pain Referrals: Primary Care Physician as needed Additional Instructions: Ultrasound of the leg today was negative for DVT or dumas's cyst. Tylenol, ibuprofen, Aleve as needed for pain. Ice the calf 20 minutes at a time 3-4 times daily. Use home walker as needed for assistance with gait. Follow-up with primary care provider symptoms persist. Med/Other Pt SpecificInfo: No Change to Meds Disposition: 01 DISCHARGE HOME Condition: Stable Dary Archibald MD April 04, 2017 13:32
--- NOTE | 2017-04-04 13:46 | RADHPO ---
EXAM DATE/TIME: 04/04/2017 13:17 [place] COMPARISON: No previous studies available for comparison. INDICATIONS : Right leg pain. MEDICAL HISTORY : Hypercholesterolemia. SURGICAL HISTORY : Hysterectomy. ENCOUNTER: Initial ACUITY: 1 day PAIN SCORE: 9/10 LOCATION: Right leg. TECHNIQUE: Venous ultrasound of the leg was performed from the inguinal ligament to the proximal calf. Real-anselmo e, color Doppler and spectral tracing, compression and augmentation techniques were used. FINDINGS: There is normal compressibility of the deep venous system from the inguinal region to the proximal ca lf. No echogenic clot is seen in the lumen of the common femoral, femoral, popliteal, and posterior tibial veins. There is a normal response of the venous system to proximal and distal augmentation an d respiration. CONCLUSION: 1. No evidence of deep venous thrombosis. Darren Ortiz MD on April 04, 2017 at 13:44 Board Certified Radiologist. This report was verified electronically.
== END 2017-04-04 13:56 | disposition home or self-care (01) ==
LOC: PHED 12:21
DX: M79.661 Pain in right lower leg (principal); E78.00 Pure hypercholesterolemia, unspecified; Z86.79 Personal history of other diseases of the circulatory system
CPT/HCPCS: 93971